=== PATIENT | female | born 1995 | race Hispanic/Latino ===

== ENCOUNTER 2022-03-11 10:30 | Emergency (ER) | payer OTHER ==
[~2022-03-11] VITALS: Ht 167.6 cm; Wt 68.2 kg
[2022-03-11 15:00] VITALS: BP 120/57
[2022-03-11] MEDS ORDERED: PROHANCE 279.3MG/ML 15ML VIAL As Ordered ONE (16:27)
[2022-03-11 18:24] LABS: BASO # 0.1 10^3/uL (0.0-0.2); BASO % 0.7 % (0.0-1.0); EOS # 0.1 10^3/uL (0.0-0.5); EOS % 1.5 % (0.0-3.0); HEMATOCRIT 39.7 % (36.0-47.0); HEMOGLOBIN 13.1 g/dl (12.0-15.5); LYMPH # 2.1 10^3/uL (1.5-5.0); LYMPH % 24.2 % (24.0-44.0); MEAN CORPUSCULAR HEMOGLOBIN 30.7 pg (27.0-33.0); MONO # 0.6 10^3/uL (0.0-0.8); MONO % 7.2 % (2.0-8.0); NEUTROPHILS # 5.7 10^3/uL (1.5-8.5); NEUTROPHILS % 66.1 % (36.0-66.0); PLATELET COUNT, AUTOMATED 295 10^3/uL (150-450); RED BLOOD COUNT 4.27 10^6/uL (4.00-5.40); WHITE BLOOD COUNT 8.6 10^3/uL (4.0-10.0)
[2022-03-11 18:46] LABS: ALBUMIN 4.2 G/DL (3.2-5.2); ALKALINE PHOSPHATASE 59 U/L (46-116); ALT/SGPT 13 U/L (7.0-40); AST/SGOT 14 U/L (<34); BILIRUBIN,TOTAL 0.7 MG/DL (0.3-1.2); BLOOD UREA NITROGEN 11 MG/DL (9-23); CALCIUM LEVEL 9.2 MG/DL (8.5-10.1); CARBON DIOXIDE LEVEL 26 MMOL/L (20-31); CHLORIDE LEVEL 104 MMOL/L (98-107); CREATININE FOR GFR 0.75 MG/DL (0.55-1.30); GLOMERULAR FILTRATION RATE > 60.0 (>60); GLUCOSE, FASTING 85 MG/DL (60-100); SODIUM LEVEL 139 MMOL/L (136-145); TOTAL PROTEIN 7.3 G/DL (5.7-8.2)
[2022-03-11 18:50] LABS: ERYTHROCYTE SEDIMENTATION RATE 8 mm/hr (0-20)
== END 2022-03-11 19:11 | disposition home or self-care (01) ==
LOC: M ED 10:30
DX: M54.50 Low back pain, unspecified (principal); R39.15 Urgency of urination; Z91.013 Allergy to seafood
CPT/HCPCS: 36415; 72158; 80053; 81002; 84702; 85025; 85652; 86140; 99283; A9576

== ENCOUNTER → 2022-04-26 | Outpatient (REF) | payer OTHER ==
[2022-04-26 17:49] LABS: APPEARANCE, URINE MANUAL CLEAR (CLEAR); BILIRUBIN, URINE MANUAL NEGATIVE (NEGATIVE); BLOOD URINE MANUAL NEGATIVE (NEGATIVE); COLOR, URINE MANUAL LT YELLOW (YELLOW); GLUCOSE, URINE (UA) MANUAL NEGATIVE (NEGATIVE); KETONE, URINE MANUAL NEGATIVE (NEGATIVE); LEUKOCYTE ESTERASE, URINE MAN NEGATIVE (NEGATIVE); NITRITE, URINE MANUAL NEGATIVE (NEGATIVE); PROTEIN, URINE MANUAL NEGATIVE (NEGATIVE); UROBILINOGEN, URINE MANUAL NORMAL (NORMAL)
[2022-04-26 19:19] LABS: GC DNA AMPLIFICATION NEGATIVE (NEGATIVE)
== END ==
LOC: M SMT 16:48
PROVIDERS: ATTEND Physician Assistant
DX: N39.41 Urge incontinence (principal)

== ENCOUNTER 2023-02-10 10:04 | Day surgery (SDC) | payer OTHER ==
[~2023-02-10] VITALS: Ht 167.6 cm; Wt 71.7 kg
[~2023-02-10 10:04] MED LIST: PROZ20CA11 PO; TRAZ1TAB10 PO
[2023-02-10] MEDS ORDERED: LR 1,000 ML IV SCH ×2 (10:20→12:55)
[2023-02-10] MEDS ORDERED: SUGAMMADEX SODIUM 500 MG/5 ML VIAL (BRIDION) As Ordered ONE (11:42)
[2023-02-10] MEDS ORDERED: LIDOCAINE 2% 100MG/5ML SDV (FOR ANES.) As Ordered ONE ×2 (11:42→12:24)
[2023-02-10] MEDS ORDERED: MIDAZOLAM INJ 2MG/2ML VIAL As Ordered ONE (11:42)
[2023-02-10] MEDS ORDERED: ROCURONIUM BROMIDE 50MG/5ML VIAL As Ordered ONE (11:42)
[2023-02-10] MEDS ORDERED: ONDANSETRON 4MG 2ML VIAL As Ordered ONE ×2 (11:42→12:24)
[2023-02-10] MEDS ORDERED: propofoL 200 MG/20 ML VIAL As Ordered ONE ×2 (11:42→12:24)
[2023-02-10] MEDS ORDERED: fentaNYL 100 MCG/2 ML INJECTION As Ordered ONE (11:43)
[2023-02-10] MEDS ORDERED: GLYCOPYRROLATE INJ 0.2 MG/ML 2 ML VIAL As Ordered ONE (12:36)
[2023-02-10] MEDS ORDERED: HYDROMORPHONE HCL 0.5 MG/ 0.5 ML SYRINGE IV PRN (12:55)
[2023-02-10] MEDS ORDERED: oxyCODONE 5MG TAB PO PRN (12:55)
[2023-02-10] MEDS ORDERED: fentaNYL 100 MCG/2 ML INJECTION IV PRN (12:55)
[2023-02-10] MEDS ORDERED: ONDANSETRON 4MG 2ML VIAL IV PRN (12:55)
[2023-02-10 13:36] VITALS: BP 134/73; TEMP 97.8; O2SAT 99
== END 2023-02-10 14:05 | disposition home or self-care (01) ==
LOC: M SDC 10:04
PROVIDERS: ATTEND Otolaryngology
DX: J35.2 Hypertrophy of adenoids (principal); Z91.013 Allergy to seafood; Z79.899 Other long term (current) drug therapy; F32.A Depression, unspecified
CPT/HCPCS: 42831; 81025; J1100; J2250; J2405; J3010